=== PATIENT | female | born 1965 | race Caucasian/White ===

== ENCOUNTER 2021-02-22 04:20 | Emergency (ER) | payer OTHER, SELFPAY ==
[2021-02-22 04:21] VITALS: BP 171/98; PULSE 71; RESP 16; TEMP 36.7; O2SAT 98; BMI 36.6
[2021-02-22 04:22] VITALS: O2SAT 97
--- NOTE | 2021-02-22 04:22 | EKG12_ITS ---
Test Reason : CP Blood Pressure : / mmHG Vent. Rate : 073 BPM Atrial Rate : 073 BPM P-R Int : 162 ms QRS Dur : 092 ms QT Int : 392 ms P-R-T Axes : 068 -04 -22 degrees QTc Int : 431 ms Normal sinus rhythm Cannot rule out Anterior infarct , age undetermined Abnormal ECG Confirmed by IDANIA PERRY, ULICES ([id number]), newspaper managing editor JERAMY BRICE ([id number]) on 02/25/2021 9:33:53 AM Referred By: BB Confirmed By:ULICES EMERSON MD
--- NOTE | 2021-02-22 04:25 | EDS_ITS ---
HPI History of Present Illness Chief Complaint: Chest Pain Informant: patient Onset/Context/Timing Onset: Hours (2-2.5) Activity at onset: sudden and sleep Timing: Continuous Quality: Positive for Tightness Location: Left Chest Current Severity: Mild Maximum Severity: Moderate Worsened By: Nothing; Not Worsened By Exertion, Movement of Arm, Movement of Torso, Palpation and Breathing Relieved By: - (cayenne pepper she ate for the pain) Associated Symptoms: Negative for Nausea, Vomiting, Diaphoresis, Dyspnea, Cough, Fever, Lightheadedness and Palpitations Narrative Narrative: 55-year-old healthy female presenting with chest discomfort radiating into her left upper extremity that started around 2 AM, waking her up from [facility]. She has never had this before. She ingested some cayenne pepper, which seemed to take the majority of the discomfort away, now her arm is a little achy and sore but the chest discomfort is gone. She denies any exertional symptoms recently. She occasionally gets a brief fluttering in her heart/chest, that has never led to syncope or near syncope. That has been going on for a couple years. She states she has felt tired off and on for the past week without any other specific symptoms of illness, except that she has woken up a couple times sweating with no other symptoms. [facility] Home Medications omeprazole 20 mg PO DAILY #30 capsule 02/22/21 [Rx Last Taken Unknown] Allergy/AdvReac Type Severity Reaction Status Date / Time amoxicillin Allergy Angioedema Verified 02/22/21 04:25 Social History Smoking Status: Never smoker [facility] ED Constitutional Constitutional ED: Reports fatigue; Denies chills or fever(s) Eyes Eyes: Denies change in vision or diplopia ENT ENT ED: Denies rhinorrhea or sore throat Cardiovascular Cardiovascular: Reports as per HPI, chest pain, flutter in chest and radiating jaw, neck or arm pain; Denies palpitations Respiratory/Chest Respiratory/Chest: Denies cough or dyspnea Gastrointestinal Gastrointestinal: Denies abdominal pain, diarrhea, nausea or vomiting Genitourinary Genitourinary ED: Denies dysuria or hematuria Musculoskeletal Musculoskeletal: Denies back pain or neck pain Integumentary Denies abscess or rash Neurologic Neurologic: Denies headache(s), paresthesias or weakness Psychiatric Psychiatric: Denies anxiety or suicidal thoughts EXAM Physical Exam Const Vital Signs: 02/22/21 04:21 05/15/21 04:22 02/22/21 04:29 Temperature 98.1 F Temperature Source Temporal Pulse Rate 71 Respiratory Rate 16 Respiratory Effort Normal Non-Labored Blood Pressure 171/98 H Blood Pressure Mean 122 Pulse Ox 98 97 Oxygen Delivery Method Room Air Nasal Cannula 02/22/21 06:21 02/22/21 06:54 Temperature Temperature Source Pulse Rate 66 64 Respiratory Rate 15 20 H Respiratory Effort Blood Pressure 139/78 H 131/79 H Blood Pressure Mean 98 96 Pulse Ox 95 98 Oxygen Delivery Method Room Air Room Air Positive well nourished and well developed General Appearance ED: well developed and NAD HEENT Reports moist mucous membranes normocephalic and atraumatic Eyes PERRL and EOMs intact bilaterally Neck full ROM and supple Resp normal respiratory effort and clear to auscultation bilaterally Cardio regular rate, regular rhythm and no murmurs GI non-tender and non-distended Auscultation: normoactive bowel sounds Palpation: soft Back/Spine no CVA tenderness General Back: other FROM Extremity normal to inspection General Extremety ED: Negative for edema, pulses abnormal or tenderness General Extremity: Negative for edema or pulses abnormal Neuro oriented x3, CN's II-XII intact bilaterally and no sensory deficits noted Sensorium / Orientation: awake and alert Motor Exam: strength 5/5 throughout Skin no rashes or lesions noted and no wounds Heart Score History: Moderately Suspicious ECG: Normal Age: >45 - <65 years Risk Factors: No Risk Factors Troponin: </= Normal Limit Score: 2 MDM MDM MDM Narrative Medical decision making narrative: After GI cocktail, the patient's left arm discomfort is completely gone. She feels better. She has a low heart score, and I think performing a delta troponin would be reasonable. I offered admission she declined and does want to do the 3-hour delta troponin and go home if it is negative. This was done and returned negative as well. I think it is also reasonable to place her on a PPI for 2 weeks until she can follow-up, she is comfortable with that overall plan. Lab Data Attestation: I reviewed the patient's lab results. Labs: Laboratory Results - last 24 hr 02/22/21 02/22/21 02/22/21 04:24 04:24 08:00 WBC 8.5 RBC 4.89 Hgb 14.2 Hct 45.0 MCV 92.0 MCH 29.0 MCHC 31.6 L RDW Std Deviation 42.8 RDW Coeff of [place] 12.7 Plt Count 311 MPV 9.7 Immature Gran % (Auto) 0.100 Neut % (Auto) 61.5 Lymph % (Auto) 28.1 [place] % (Auto) 5.9 Eos % (Auto) 3.5 Baso % (Auto) 0.9 Absolute Neuts (auto) 5.2 Absolute Lymphs (auto) 2.39 Nucleated RBC % 0 Sodium 139 Potassium 3.5 Chloride 103 Carbon Dioxide 28.0 Anion Gap 8 BUN 12 Creatinine 0.78 Estim Creat Clear Calc 62.22 Est GFR (MDRD) Af Amer 99 Est GFR (MDRD) Non-Af 82 BUN/Creatinine Ratio 15.4 Glucose 100 Calcium 10.1 Troponin I < 0.015 < 0.015 Radiography Chest X-Ray - ED: 1 View, Read by ED Physician and No Acute Disease Diagnostic Testing: Radiology Impression Chest X-Ray 02/22/21 04:45 IMPRESSION: Normal x-ray examination of the chest. Electronically Signed: Patrice Sims DO at 5:19 EDT Tel , Service support , EKG Initial EKG: Attestation: I personally reviewed and interpreted this EKG as follows: Interpretation: Sinus Rhythm and No Acute Injury Pattern Comments: Some artifact present, but otherwise normal EKG Prior EKG tracings: not available for review Discharge Plan Triage Chief Complaint: Chest Pain ED Provider: Michael Monk Dx/Rx/DC Orders Clinical Impression: Chest pain Instructions: ED Chest Pain, Noncardiac Prescriptions: New omeprazole [omeprazole] 20 MG capsule 20 mg PO DAILY Qty: 30 RF: 0 Primary Care Provider: Rik Carbajal Referrals: Rik Carbajal MD [Primary Care Provider] - As soon as possible Disposition Disposition: Home, self care
[2021-02-22 04:32] LABS: Absolute Lymphocyte Count 2.39 X10^3/uL (0.83-4.51); Absolute Neutrophil Count 5.2 X10^3/uL (2.0-7.7); Basophil# 0.08 X10^3/uL; Basophil% 0.9 % (0-1); Eosinophils% 3.5 % (0-5); Hemoglobin 14.2 g/dL (12.0-15.0); Lymphocyte # 2.39 X10^3/ul (0.83-4.51); Lymphocyte % 28.1 % (19-41); Mean Corp Hgb Conc 31.6 g/dL (32-36); Mean Platelet Vol. 9.7 fl (6.2-12.0); Monocyte% 5.9 % (0-10); NRBC Flagged by Analyzer 0 % (0-5); Neutrophil # 5.22 X10^3/uL (2.7-7.7); Neutrophil % 61.5 % (47-70); Platelet Count 311 K/mm3 (150-450); RBC Distribution Width CV 12.7 % (11.6-14.6); RBC Distribution Width SD 42.8 fl (35.1-43.9); Red Blood Count 4.89 M/mm3 (4.2-5.4); White Blood Count 8.5 K/mm3 (4.4-11.0)
[2021-02-22] MEDS: Mag Hydrox/Al Hydrox/Simeth 30 ML UDC PO (04:38)
--- NOTE | 2021-02-22 04:38 | ED.RN ---
OVERODE MYLANTA & VISCOUS LIDOCAINE PER ORDER FROM DR DAVENPORT, ORDERS ARE NOT CROSSING OVER TO THE EMAR
--- NOTE | 2021-02-22 04:45 | RAD_ITS ---
STUDY: X-RAY CHEST REASON FOR EXAM: Female, 55 years old. chest pain and tightness since 2 am. TECHNIQUE: Single AP portable view of the chest. COMPARISON: 02/22/2021 FINDINGS: The lungs are clear and expanded. There is no demonstrated pleural abnormality. Normal size heart. Normal mediastinum and kareem. Normal visualized pulmonary arteries. Normal visualized aortic arch and descending thoracic aorta. Normal visualized thoracic spine. Normal visualized ribs, clavicles, and shoulders. There is no demonstrated abnormality of the visualized soft tissue structures of the upper abdomen. RAD/Chest 1 View (Portable) IMPRESSION: Normal x-ray examination of the chest. Electronically Signed: Patrice Sims DO at 5:19 EDT Tel , Service support ,
[2021-02-22 05:00] LABS: Anion Gap 8 (5-15); BUN 12 mg/dL (7-18); BUN/Creat Ratio 15.4 RATIO (10-20); Calcium,Total 10.1 mg/dL (8.5-10.1); Chloride 103 mmol/L (98-107); Creatinine, Serum 0.78 mg/dL (0.55-1.02); EST Glomerular Filtration Rate 82 mL/min (>60); Est Glom Filt Rate - Afr Amer 99 mL/min (>60); Estimated Creatinine Clearance 62.22 ml/min; Glucose 100 mg/dL (74-106); Potassium 3.5 mmol/L (3.5-5.1); Sodium Level 139 mmol/L (136-145)
[2021-02-22 06:21] VITALS: BP 139/78; PULSE 66; RESP 15; O2SAT 95
[2021-02-22 06:54] VITALS: BP 131/79; PULSE 64; RESP 20; O2SAT 98
[2021-02-22 08:58] VITALS: BP 139/80; PULSE 67; RESP 19; O2SAT 97
== END 2021-02-22 08:59 | disposition home or self-care (01) ==
PROVIDERS: Emergency Provider Emergency Medicine; PCP Family Medicine
DX: R07.89 Other chest pain (principal)
CPT/HCPCS: 71045; 80048; 84484; 85025; 93005; 99285; A4216